=== PATIENT | female | born 1990 | race Caucasian/White ===

== ENCOUNTER 2020-06-27 11:11 | Emergency (ER) | payer SELFPAY ==
[2020-06-27 11:18] VITALS: BP 134/65; PULSE 89; TEMP 98; BMI 42.7
[2020-06-27] MEDS ORDERED: FAMOTIDINE 20 MG TABLET PO ONE (11:48)
[2020-06-27] MEDS ORDERED: LORATADINE 10 MG TABLET PO ONE (11:48)
[2020-06-27] MEDS ORDERED: predniSONE 20 MG TABLET (UD) PO ONE (11:48)
[2020-06-27] MEDS ORDERED: LORATADINE 10 MG TABLET ONE (11:50)
[2020-06-27] MEDS ORDERED: FAMOTIDINE 20 MG TABLET ONE (11:51)
[2020-06-27] MEDS ORDERED: predniSONE 20 MG TABLET (UD) ONE (11:51)
== END 2020-06-27 12:32 | disposition home or self-care (01) ==
LOC: JERFT 11:11
DX: L50.9 Urticaria, unspecified (principal); T78.40XA Allergy, unspecified, initial encounter
CPT/HCPCS: 99283-25

== ENCOUNTER 2020-09-25 07:59 | Emergency (ER) | payer OTHER ==
[2020-09-25 08:12] VITALS: BP 127/69; PULSE 90; TEMP 98.4; BMI 43.4
== END 2020-09-25 09:33 | disposition home or self-care (01) ==
LOC: JER 07:59
DX: R21 Rash and other nonspecific skin eruption (principal)
CPT/HCPCS: 99281-25